=== PATIENT | female | born 1970 | race Caucasian/White ===

== ENCOUNTER 2019-01-27 16:12 | Emergency (ER) | payer OTHER ==
[~2019-01-27] VITALS: Ht 167.6 cm; Wt 82.7 kg
[~2019-01-27 16:12] MED LIST: QUET200T PO
[2019-01-27] MEDS ORDERED: QUET200T PO (16:34)
[2019-01-27] MEDS ORDERED: LIDOCAINE/PF 1% 2 ML VIAL IM ONE (16:45)
[2019-01-27] MEDS ORDERED: CefTRIAXone SODIUM 1 GM/VIAL IM ONE (16:45)
[2019-01-27] MEDS ORDERED: BACITRACIN 0.9 GM PACKET OINTMENT TP ONE (17:00)
[2019-01-27 17:55] VITALS: BP 138/80
== END 2019-01-27 17:57 | disposition home or self-care (01) ==
LOC: EMS 16:13
DX: S60.414A Abrasion of right ring finger, initial encounter (principal); F31.9 Bipolar disorder, unspecified; W49.04XA Ring or other jewelry causing external constriction, initial encounter; Y93.89 Activity, other specified; Y92.89 Other specified places as the place of occurrence of the external cause; Y99.8 Other external cause status
CPT/HCPCS: 96372; 99284; J0696; J3490